=== PATIENT | female | born 1975 | race Caucasian/White ===

== ENCOUNTER 2020-10-01 19:15 | Emergency (ER) | payer BC ==
[~2020-10-01] VITALS: Ht 157.5 cm; Wt 51.3 kg
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
--- NOTE | 2020-10-01 19:46 | NUR ---
URINE COLLECTED AND SENT
--- NOTE | 2020-10-01 19:48 | NUR ---
PT TAKEN TO CT
[2020-10-01 20:42] VITALS: BP 100/73
--- NOTE | 2020-10-01 20:42 | NUR ---
Patient discharged to home in stable condition. Written and verbal after care instructions given. Patient verbalizes understanding of instruction.
== END 2020-10-01 20:42 | disposition home or self-care (01) ==
LOC: ER 19:19
DX: S09.8XXA Other specified injuries of head, initial encounter (principal); R51.9 Headache, unspecified; Z88.1 Allergy status to other antibiotic agents; W22.8XXA Striking against or struck by other objects, initial encounter; Y93.89 Activity, other specified; Y92.89 Other specified places as the place of occurrence of the external cause; Y99.8 Other external cause status
CPT/HCPCS: 70450-TC; 84703-TC